=== PATIENT | female | born 1995 | race Caucasian/White ===

== ENCOUNTER 2022-01-06 01:59 | Inpatient (IN) | payer BC, SELFPAY ==
[2022-01-06] VITALS (17 sets, daily range): BP systolic 110–131; BP diastolic 60–91; PULSE 62–146; RESP 18; TEMP 36.7–37.2; O2SAT 99–100; BMI 32.6
[2022-01-06 03:20] LABS: Basophils Absolute Auto 0.1 K/mm3 (0.0-0.1); Basophils Percent Auto 0.4 % (0.2-1.2); Eosinophils Absolute Auto 0.1 K/mm3 (0-0.3); Eosinophils Percent Auto 0.9 % (0-4.4); Hematocrit 31.8 % (37.0-47.0); Hemoglobin 10.5 g/dL (12.0-15.0); Immature Granulocyte Absolute 0.15 K/mm3 (0.00-0.031); Immature Granulocyte Percent A 1.2 % (0-0.5); Immature Platelet Fraction Pct 9.2 % (0.9-11.2); Lymphocytes Percent Auto 29.2 % (18.3-44.2); Mean Corpuscular Hemoglobin 28.6 pg (26-34); Mean Corpuscular Volume 86.6 fl (80-100); Mean Platelet Volume 12.2 fl (7.4-10.4); Monocytes Percent Auto 7.6 % (2.6-8.5); Neutrophils Absolute Auto 7.9 K/mm3 (1.3-6.7); Neutrophils Percent Auto 60.7 % (45.5-73.1); Platelet Count Result 211 k/mm3 (150-375); Red Blood Count 3.67 M/mm3 (4.2-5.4); Red Cell Distribution Width 12.4 % (11.5-14.5)
[2022-01-06] MEDS: LACTATED RINGERS 1,000 ML 125 ML IV CONT (04:30)
[2022-01-06] MEDS: OXYTOCIN 30 UNITS/NS 500 ML 30 UNITS/500 ML BAG 999 UNITS IV CONT (05:37)
[2022-01-06] MEDS: LIDOCAINE HCL 1% PF 30 ML VIAL (05:45)
--- NOTE | 2022-01-06 06:04 | PM.OBPRVD ---
OB - Delivery Note Procedure Delivery date: 01/06/22 Procedure: Route of delivery: Laceration Description: Perineal - 2nd Degree Delivery repair: vicryl Quantitative Blood Loss (ml): 250 Anesthesia type: Local (with repair) Disposition: Floor Narrative: With adequate expulsive efforts by the mother, the baby's head was delivered OA. The baby's anterior shoulder was delivered under the pubic symphysis without difficulty. The posterior shoulder and the rest of the baby delivered without difficulty. The infant was placed on the mothers chest and suctioned and stimulated. The cord was clamped and cut after 30 seconds. Mother and baby both stable. Baby Date of : 01/06/22 Time of : 05:33 Weeks of gestation at delivery: 37 gender: Male Weight (pounds): 6 Weight (ounces): 15 presentation: vertex Placenta delivery description: Spontaneous Cord Vessel Description: 3 Vessels and Delayed Cord Clamping score one minute: 8 score five minutes: 9
[2022-01-06] MEDS: IBUPROFEN 600 MG TABLET PO ×3 (08:04→21:11)
[2022-01-06] MEDS: WITCH HAZEL 40 PADS 1 PAD TOPICAL (08:05)
[2022-01-06] MEDS: BENZOCAINE 20% AER SPR (*SP) 56 GM CAN 1 SPRAY TOPICAL (08:05)
[2022-01-06] MEDS: DOCUSATE SODIUM 100 MG CAPSULE PO ×2 (14:00→17:10)
[2022-01-06] MEDS: MULTIVIT/MIN/PREN/FOL AC/IRON TABLET 1 TAB PO (14:00)
[2022-01-06] MEDS: ACETAMINOPHEN 325 MG TABLET 650 MG PO (17:10)
[2022-01-07 01:09] VITALS: BP 116/57; PULSE 74; RESP 16; TEMP 36.6; O2SAT 99
[2022-01-07] MEDS: ACETAMINOPHEN 325 MG TABLET 650 MG PO ×2 (01:45→12:17)
[2022-01-07 04:10] VITALS: BP 102/57; PULSE 73; RESP 18; TEMP 36.9
--- NOTE | 2022-01-07 04:26 | PC.NURSE ---
Aleena Kim RN charted on this patient from 01/06/22 1800 - 01/07/22 [id number]
[2022-01-07 05:42] LABS: Hematocrit 29.4 % (37.0-47.0); Hemoglobin 9.7 g/dL (12.0-15.0)
[2022-01-07 08:30] VITALS: BP 105/66; PULSE 65; RESP 18; TEMP 36.5; O2SAT 100
[2022-01-07] MEDS: MULTIVIT/MIN/PREN/FOL AC/IRON TABLET 1 TAB PO (08:41)
[2022-01-07] MEDS: DOCUSATE SODIUM 100 MG CAPSULE PO ×2 (08:41→16:54)
[2022-01-07] MEDS: POLYSACCHARIDE IRON COMPLEX 150 MG CAPSULE PO ×2 (08:41→16:54)
[2022-01-07] MEDS: IBUPROFEN 600 MG TABLET PO ×2 (08:42→16:54)
--- NOTE | 2022-01-07 10:55 | P.PNOB_ITS ---
OB - PN: Subj Subjective Date/time seen: 01/07/22 10:55 Patient comments: no complaints and pain well controlled baby status: doing well and nursing well [place] feeding status: exclusively breast feeding OB - PN: Obj Data Labs CBC & Chem 7: 01/07/22 05:18 Labs: Laboratory Results - last 24 hr 01/07/22 05:18 Hgb 9.7 L Hct 29.4 L OB - PN A/P Plan day: 1 Plan: routine care Comments: consented for circumcision and circumcision completed. Time Spent With Patient Time: Total time spent is greater than 50% in coordination of care (as documented) at patient's floor/unit and/or counseling patient: Time with patient: less than 15 minutes Exam Narrative: NAD abdomen soft, nontender, fundus firm below the umbilicus Extremities nontender, 1+ edema
[2022-01-07 19:34] VITALS: BP 98/55; PULSE 69; RESP 18; TEMP 36.8; O2SAT 97
--- NOTE | 2022-01-08 05:09 | P.PNOB_ITS ---
OB - PN: Subj Subjective Date/time seen: 01/08/22 05:09 Patient comments: no complaints baby status: doing well and nursing well [place] feeding status: exclusively breast feeding OB - PN: Obj Data Labs CBC & Chem 7: 01/07/22 05:18 Labs: Laboratory Results - last 24 hr 01/07/22 05:18 Hgb 9.7 L Hct 29.4 L OB - PN A/P Plan day: 2 Plan: routine care and discharge home Time Spent With Patient Time: Total time spent is greater than 50% in coordination of care (as documented) at patient's floor/unit and/or counseling patient: Time with patient: less than 15 minutes Exam Narrative: NAD abdomen soft, nontender, fundus firm below the umbilicus Extremities nontender, 1+ edema
--- NOTE | 2022-01-08 05:10 | PM.OBDSVD ---
DS: Admitting Diagnosis Discharge Date 01/08/22 Admitting Diagnosis term IUP, labor DS: Discharge Diagnosis Discharge Diagnosis (1) , delivered: Code(s): O80 - Encounter for full-term uncomplicated delivery Status: Acute OB - DS: Summary Hospital Course Hospital Course: Srinath presented in labor at term. She proceeded to have an uncomplicated vaginal delivery and course and was discharged home in stable condition on PPD 2. OB Procedures : Ultrasound OB Procedures Intrapartum: Spontaneous Vag Delivery OB Procedures: : None Peripartum Data Delivery Method: Natural Vaginal complications: none Status at Discharge Functional status at discharge: independent ambulation Time Spent with Patient Time attestation: Total time spent providing and/or coordinating discharge services: Exam Narrative: NAD abdomen soft, appropriately tender Ext non tender, 1+ edema DS: Data Data Completed and Pending Labs on day of discharge: Labs from last 24 hours 01/07/22 05:18 Hgb 9.7 L Hct 29.4 L Discharge Plan Discharge Attending physician on discharge: Raisa Gross Discharging Clinician: Raisa Gross Patient Disposition: Home, Self-Care Activity: pelvic rest Diet: regular Patient Instructions: Antibiotic Form Stand Alone Forms: General Discharge Information Follow-up/Referrals: Raisa Gross MD [Physician] - 4 Weeks Date of admission: 01/06/22 01:59 Primary Care Provider: UNKNOWN,DOCTOR Admitting Provider: Raisa Gross Attending physician on admission: Raisa Gross Condition: Stable
[2022-01-08 07:00] VITALS: BP 110/65; PULSE 68; RESP 16; TEMP 36.7; O2SAT 99
--- NOTE | 2022-01-08 09:15 | PC.NURSE ---
[id number] Britt completed communication with the patient who is introductions were made, then consulted with patient to assess needs related to . Mother led the conversation with her?plans to feed?her infant and the?experience so far. Mother states it feels pinchy and the latch appears to be less than 90 degrees so was removed from the breast. had been sucking on partial nipple. Mother works well with her with encouragement. Encouraged understanding of the benefits of skin to skin (unwrapping infant and placing vertically on her chest), responsive feeding and how to watch for early feeding signs, frequency of feeding on demand about every 8-12 times in 24 hours (every 2-3 hours), milk production, duration of feeding, signs of adequate intake/output and to continue recording on the feeding sheet. Reviewed positioning and ear, shoulder, hip alignment, supporting the breast, asymmetrical latch (off-center), and leading with the chin with a big open side gape. Infant latched optimally to the right breast in cross cradle position. Education given to mother of how to visualize suck/swallow ratios and listen for drinking at the breast. Infant was able to maintain latch without discomfort to mother. Nipple care reviewed with optimal latch and good positioning. After stimulating infant with massage touch and burping demonstrated feeding cues and was optimally latched to the left breast using cross cradle positioning with no pain. Mother visualized the appropriate suck/swallow ratios, parents recognized how to keep actively engaged in with touch, talking and gentle breast compression. has had appropriate feedings in the last 24 hours meets the outcomes for weight, output and jaundice at this time. Mother states she is confident to continue effectively her infant at home or when to call for assistance and denies any additional assistance or education at this time. Resources used to facilitate learning were used with the tool and mom/baby guide. Mother voiced understanding of responsive feedings, stimulating with skin to skin, hand expressed colostrum, massage touch, talking to to encourage if it has been 2 -3 hours since the start of the last , to call if infant does not latch or there is discomfort with . Primary RN is present.
[2022-01-08] MEDS: MULTIVIT/MIN/PREN/FOL AC/IRON TABLET 1 TAB PO (10:39)
[2022-01-08] MEDS: DOCUSATE SODIUM 100 MG CAPSULE PO (10:39)
[2022-01-08] MEDS: IBUPROFEN 600 MG TABLET PO (10:40)
[2022-01-08] MEDS: POLYSACCHARIDE IRON COMPLEX 150 MG CAPSULE PO (10:40)
--- NOTE | 2022-01-08 11:12 | PC.NURSE ---
Patient viewed the discharge video Mother & Baby Care, The First Two Weeks . Patient was given the opportunity and encouraged to ask questions. Patient verbalized understanding of information shared and has been given the mother/baby guide for home reference.
[2022-01-08] MEDS: MEASLES,MUMPS,RUBELLA VACCINE 0.5 ML VIAL SUB-Q (11:40)
[2022-01-08 12:44] LABS: Rapid Plasma Reagin Non-Reactive (NonReactive)
[2022-01-09 09:49] VITALS: BP 115/63; PULSE 78; RESP 16; TEMP 36.6; O2SAT 100
== END 2022-01-08 12:12 | disposition home or self-care (01) | DRG 807 ==
LOC: ANHLDR 02:57 → ANHOB2 08:53
PROVIDERS: Admitting Provider Obstetrics & Gynecology; Visit Provider Obstetrics & Gynecology
DX: O70.1 Second degree perineal laceration during delivery (principal); Z37.0 Single live birth; Z3A.37 37 weeks gestation of pregnancy
CPT/HCPCS: 36415; 84112; 85014; 85018; 85025; 85055; 86592; 86850; 86900; 86901; 90710; A9270; J2590; J2795; J7120